=== PATIENT | male | born 1975 | race African-American/Black ===

== ENCOUNTER 2018-03-31 04:27 | Emergency (ER) | payer OTHER ==
[~2018-03-31] VITALS: Ht 185.4 cm; Wt 97.5 kg
[2018-03-31 04:45] VITALS: BP 157/92
--- NOTE | 2018-03-31 04:45 | NUR ---
ED Nurse Note: Pt arrived ED from home, c/o right lower tooth ache and right side of facial swollen for 2 days, and c/o pain 6/. Pt is A/O X4. Vital signs stable at this time, waitng for orders.
--- NOTE | 2018-03-31 05:04 | Emergency Room Report ---
History of Present Illness General Chief Complaint: Toothache Source: Patient Present Illness HPI Patient presents for complaints of increased swelling to the right lower facial region Patient reports being seen by dental specialist today had x-rays and imaging was told that he had an infection and required root canal Patient started on clindamycin and Motrin reports that Later in the evening the area has become more swollen denies any swollen throat denies any difficulty swallowing or breathing Denies any fevers or chills denies any chest pain or shortness of breath Allergies: Coded Allergies: No Known Allergies (Unverified , 03/31/18) Patient History Past Medical History: see triage record Pertinent Family History: none Reviewed Nursing Documentation: PMH: Agreed; PSxH: Agreed Nursing Documentation-PMH Past Medical History: No Stated History Review of Systems All Other Systems: negative except mentioned in HPI Physical Exam Vital Signs Date Time Temp Pulse Resp B/P (MAP) Pulse Ox O2 Delivery O2 Flow Rate FiO2 03/31/18 04:35 98.8 104 161/95 98 Room Air 03/31/18 04:45 18 Sp02 EP Interpretation: reviewed, normal General Appearance: well appearing, no apparent distress Head: normocephalic, atraumatic Eyes: bilateral eye PERRL, bilateral eye EOMI ENT: other - Swelling to the right gingival region, dental decay back molar region as well, airway patent Neck: supple, thyroid normal Respiratory: lungs clear, no retraction Cardiovascular #1: regular rate, rhythm Gastrointestinal: non tender, soft Musculoskeletal: normal inspection Neurologic: alert, oriented x3 Skin: other - As above with swelling to the right lower facial region Medical Decision Making Diagnostic Impression: Primary Impression: dental abscess ER Course Patient has signs of dental abscess question early signs of gingival, facial abscess patient has had fairly extensive workup and studies performed today including dental Studies and evidence of dental abscess This is likely continuation of the primary diagnosis patient is on clindamycin which Is because he has allergies to penicillin However this is not noted in the triage patient is stable for continued warm compresses continue antibiotic and was recommended to follow-up with the dental specialist for further care Last Vital Signs Date Time Temp Pulse Resp B/P (MAP) Pulse Ox O2 Delivery O2 Flow Rate FiO2 03/31/18 04:45 98.7 78 18 157/92 98 Room Air Status: unchanged Disposition: HOME, SELF-CARE Condition: Stable Scripts No Active Prescriptions or Reported Meds Referrals: [facility],REFERRING (PCP) [facility](age 2-12) - Orthodontic Clinic - Hours: Mon,Mon,, 8:15am and 1pm (new patient screening), Tues. 1pm. Emergency clinic Monday - Monday 8:30am and 1pm, Tues. 1pm. *Call to check if clinic is open; No appointment necessary for the first visit ( new patient screening), Arrive 15-30 minutes early as it is first come, first serve. [facility] INFO: New Patient Screening: Mon- 8am-1pm Mon- 9am -5pm and Mon 2pm-5pm [facility] + [facility] [place] [facility] - Peds ER - Patient Instructions: Dental Abscess, [id number] Additional Instructions: Patient is provided with the discharge instructions notified to follow up with primary doctor in the next 2-3 days otherwise return to the er with any worsening symptoms. Please note that this report is being documented using [employer] technology. This can lead to erroneous entry secondary to incorrect interpretation by the dictating instrument. Arie Ching DO Mar 31, 2018 05:04
[2018-03-31 05:12] VITALS: BP 156/91
--- NOTE | 2018-03-31 05:12 | NUR ---
ED Nurse Note: Pt has seen by Dr. Ching, all orders carried out. Pt is ready for discharged. Discharge instruction given to pt and verbalized understanding. ID band removed.Pt discharge from ED with steady gait and all his belongings.
== END 2018-03-31 05:12 | disposition home or self-care (01) ==
LOC: EMR 04:47 → MERGE 04:47 → EMR 05:12
DX: K04.7 Periapical abscess without sinus (principal)
CPT/HCPCS: 99282

== ENCOUNTER 2018-12-22 09:26 | Emergency (ER) | payer SELFPAY ==
[~2018-12-22] VITALS: Ht 185.4 cm; Wt 97.5 kg
[2018-12-22 09:37] VITALS: BP 139/94
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
--- NOTE | 2018-12-22 10:05 | NUR ---
ED Nurse Note: ERMD at bedside.
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
--- NOTE | 2018-12-22 10:15 | NUR ---
ED Nurse Note: x-ray at bedside.
[2018-12-22] MEDS ORDERED: ROBAXIN-750750 MG PO (10:32)
--- NOTE | 2018-12-22 10:35 | Diagnostic Imaging Report ---
EXAM: XR Right Shoulder Complete, 2 or More Views CLINICAL HISTORY: PAIN TECHNIQUE: Two or more views of the right shoulder. COMPARISON: None FINDINGS: Bones joints: No displaced fracture or dislocation identified. Degenerative changes of the right acromioclavicular joint. Soft tissues: Normal. IMPRESSION: No displaced fracture or dislocation identified.
[2018-12-22] MEDS ORDERED: IBUPROFEN600 MG ORAL (10:59)
[2018-12-22 11:00] VITALS: BP 134/83
--- NOTE | 2018-12-22 11:01 | NUR ---
ED Nurse Note: Pt cleared by health care Provider for discharge. DC instructions/prescription was given and explained to pt and verbalized understanding of teachings. All medical deviecs such as ID band removed. Pt is AAO x4, ambulatory and left with all personal belongings. Pt received prescription for ibuprofen 600mg as well.
[2018-12-23] MEDS ORDERED: TYLENOL325 MG ORAL (22:05)
[2018-12-23] MEDS ORDERED: CEPHALEXIN500 MG ORAL (22:05)
[2018-12-23] MEDS ORDERED: TRAMADOL HCL50 MG ORAL (22:05)
== END 2018-12-22 11:02 | disposition home or self-care (01) ==
LOC: EMR 09:40
DX: M25.511 Pain in right shoulder (principal)
CPT/HCPCS: 99283

== ENCOUNTER 2018-12-23 21:35 | Emergency (ER) | payer SELFPAY ==
[~2018-12-23] VITALS: Ht 182.9 cm; Wt 97.5 kg
[~2018-12-23 21:35] MED LIST: IBUPROFEN600 MG ORAL; ROBAXIN-750750 MG PO
--- NOTE | 2018-12-23 21:45 | NUR ---
ED Nurse Note: Pt walked in c/o toothache for couple of months but progressively worsening, pt states he was seen by doctor this morning and was prescribed motrin but no relief after taking medication. will cont monitor, ermd at the bedside for exam.
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
[2018-12-23] MEDS ORDERED: Acetaminophen 500mg (ES) tab ORAL ONE (22:00)
[2018-12-23] MEDS ORDERED: Cephalexin 500mg cap ORAL ONE (22:00)
[2018-12-23 22:02] VITALS: BP 158/91
[2018-12-23] MEDS ORDERED: CEPHALEXIN500 MG ORAL (22:05)
[2018-12-23] MEDS ORDERED: TYLENOL325 MG ORAL (22:05)
[2018-12-23] MEDS ORDERED: TRAMADOL HCL50 MG ORAL (22:05)
--- NOTE | 2018-12-23 22:17 | NUR ---
ED Nurse Note: pt cleared to be d/c per ermd, pt discharge and aftercare instruction w/ prescription provided, pt education done via discussion and handout, pt advised to follow up with dentist or return to ed if sx worsen, pt verbalized understanding and agrees with plan, vss, ambulatory w/ steady gait, left w/ all belongings.
[2018-12-23 22:18] VITALS: BP 146/99
== END 2018-12-23 22:18 | disposition home or self-care (01) ==
LOC: EMR 22:12
DX: K04.7 Periapical abscess without sinus (principal); S02.5XXA Fracture of tooth (traumatic), initial encounter for closed fracture; Z88.0 Allergy status to penicillin; X58.XXXA Exposure to other specified factors, initial encounter; Y92.9 Unspecified place or not applicable
CPT/HCPCS: 99282

== ENCOUNTER 2019-01-13 14:48 | Emergency (ER) | payer OTHER ==
[~2019-01-13] VITALS: Ht 188 cm; Wt 99.8 kg
[~2019-01-13 14:48] MED LIST changes: +CEPHALEXIN500 MG ORAL; +TRAMADOL HCL50 MG ORAL; +TYLENOL325 MG ORAL
[2019-01-13 15:02] VITALS: BP 111/71
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
[2019-01-13] MEDS ORDERED: IBU800 MG PO (15:33)
[2019-01-13] MEDS ORDERED: ROBAXIN-500MG ORAL (15:33)
[2019-01-13] MEDS ORDERED: CLINDAMYCIN HC150 MG ORAL (15:33)
[2019-01-13 15:42] VITALS: BP 122/70
--- NOTE | 2019-01-13 15:42 | NUR ---
ER DISCHARGE NOTE: Patient is cleared to be discharged per PA, pt is aox4, on room air, with stable vital signs. pt was given dc and prescription instructions, pt was able to verbalize understanding, pt id band removed. pt is able to ambulate with steady gait. pt took all belongings.
== END 2019-01-13 15:42 | disposition home or self-care (01) ==
LOC: EMR 15:30
DX: M54.5 Low back pain (principal); G89.29 Other chronic pain; K04.7 Periapical abscess without sinus; Z88.0 Allergy status to penicillin
CPT/HCPCS: 99282